=== PATIENT | male | born 1940 | race Caucasian/White ===

== ENCOUNTER 2023-03-19 11:24 | Outpatient (RCR) | payer MEDICARE, OTHER, SELFPAY | END 2023-03-19 14:22 | disposition home or self-care (01) | LOC: ROT 11:24 | PROVIDERS: ATTENDING PHYSICIAN Nurse Practitioner Adult Health; FAMILY PHYSICIAN Internal Medicine | DX: G20.A2 Parkinson's disease without dyskinesia, with fluctuations (principal); Z73.6 Limitation of activities due to disability | CPT/HCPCS: 97010; 97110; 97535 ==

== ENCOUNTER → 2023-09-11 13:09 | Outpatient (REF) | payer OTHER, SELFPAY ==
[2023-09-11 13:36] LABS: % Basophils 1.5 % (0-2); % Eosinophils 5.7 % (0-6); % Immature Granulocytes 0.5 % (0-0.5); % Lymphocytes 27.7 % (20.5-51.1); % Neutrophils 54.6 % (42.2-75.2); Absolute Basophils 0.2 10^3/uL (0-0.2); Absolute Eosinophils 0.6 10^3/uL (0-0.7); Absolute Immature Granulocytes 0.1 10^3/uL (0-0.05); Absolute Lymphocytes 2.8 10^3/uL (1.2-3.4); Absolute Neutrophils 5.6 10^3/uL (1.4-6.5); Hematocrit 36.4 % (39.0-52.0); Hemoglobin 12.3 g/dL (13.0-18.0); Mean Corp Hgb Conc. 33.8 g/dL (33.0-37.0); Mean Corpuscular Hgb 30.3 pg (27.0-31.0); Mean Corpuscular Volume 89.7 fL (80.0-94.0); Mean Platelet Volume 10.4 fL (7.4-10.4); Nucleated Red Blood Cells % 0 % (-); Platelet Count 408 10^3/uL (130-400); Red Blood Cell Count 4.06 10^6/uL (4.70-6.10); White Blood Cell Count 10.3 10^3/uL (4.8-10.8)
[2023-09-11 14:10] LABS: Blood Urea Nitrogen 24 mg/dl (9-20); Calcium 9.4 mg/dl (8.4-10.2); Carbon Dioxide 25 mmol/L (22-30); Chloride 104 mmol/L (98-107); Glucose 78 mg/dl (70-99); Potassium 4.5 mmol/L (3.5-5.1); Sodium 137 mmol/L (135-145); eGFR > 60.00
== END ==
LOC: OLABP 13:09
PROVIDERS: ATTENDING PHYSICIAN Family Medicine
DX: G93.9 Disorder of brain, unspecified (principal); D33.2 Benign neoplasm of brain, unspecified; R26.2 Difficulty in walking, not elsewhere classified; I48.21 Permanent atrial fibrillation; I10 Essential (primary) hypertension; G24.9 Dystonia, unspecified; S01.81XD Laceration without foreign body of other part of head, subsequent encounter
CPT/HCPCS: 36415; 80048; 85025

== ENCOUNTER → 2023-10-06 12:29 | Outpatient (REF) | payer OTHER, SELFPAY ==
[2023-10-06 14:21] LABS: % Basophils 1.6 % (0-2); % Immature Granulocytes 0.3 % (0-0.5); % Lymphocytes 36.6 % (20.5-51.1); % Monocytes 12.2 % (1.7-9.3); % Neutrophils 43.3 % (42.2-75.2); Absolute Basophils 0.1 10^3/uL (0-0.2); Absolute Eosinophils 0.5 10^3/uL (0-0.7); Absolute Lymphocytes 2.8 10^3/uL (1.2-3.4); Absolute Monocytes 0.9 10^3/uL (0.1-0.6); Absolute Neutrophils 3.3 10^3/uL (1.4-6.5); Hematocrit 37.4 % (39.0-52.0); Hemoglobin 12.7 g/dL (13.0-18.0); Mean Corpuscular Hgb 30.8 pg (27.0-31.0); Mean Corpuscular Volume 90.8 fL (80.0-94.0); Mean Platelet Volume 10.8 fL (7.4-10.4); Nucleated Red Blood Cells % 0 % (-); Platelet Count 305 10^3/uL (130-400); Red Blood Cell Count 4.12 10^6/uL (4.70-6.10); Red Cell Dist. Width 13.5 % (11.5-14.5); White Blood Cell Count 7.7 10^3/uL (4.8-10.8)
[2023-10-06 14:32] LABS: Blood Urea Nitrogen 21 mg/dl (9-20); Calcium 9.6 mg/dl (8.4-10.2); Carbon Dioxide 24 mmol/L (22-30); Chloride 104 mmol/L (98-107); Glucose 69 mg/dl (70-99); Potassium 4.5 mmol/L (3.5-5.1); Sodium 136 mmol/L (135-145); eGFR > 60.00
== END ==
LOC: OLABP 12:29
PROVIDERS: ATTENDING PHYSICIAN Family Medicine
DX: G93.9 Disorder of brain, unspecified (principal); R26.2 Difficulty in walking, not elsewhere classified; D33.2 Benign neoplasm of brain, unspecified; I48.21 Permanent atrial fibrillation; I10 Essential (primary) hypertension; G24.9 Dystonia, unspecified; S01.81XA Laceration without foreign body of other part of head, initial encounter
CPT/HCPCS: 36415; 80048; 85025